=== PATIENT | female | born 1965 | race Caucasian/White ===

== ENCOUNTER 2023-04-12 15:39 | Emergency (ER) | payer MEDICAID ==
[~2023-04-12] VITALS: Wt 56.7 kg
[~2023-04-12 15:39] MED LIST: ACETA325 MG PO; AMOXICILLIN500 MG PO; BACTRIM DS 8001 TA1 PO; NKHM; SEPTRA DS 800 M1 TAB PO; VICODIN 500 MG-1 TAB PO; ZITHROMAX Z PA250 MG PO
[2023-04-12] MEDS ORDERED: PREDNISONE20 M1 PO (17:09)
[2023-04-12] MEDS ORDERED: TRIAMCINOLONE430 GM TD (17:09)
== END 2023-04-12 17:12 | disposition home or self-care (01) ==
LOC: ED 15:39
DX: L23.7 Allergic contact dermatitis due to plants, except food (principal); Z98.51 Tubal ligation status

== ENCOUNTER 2023-04-15 15:25 | Emergency (ER) | payer MEDICAID ==
[~2023-04-15] VITALS: Ht 162.5 cm; Wt 59.0 kg
[~2023-04-15 15:25] MED LIST changes: +PREDNISONE20 M1 PO; +TRIAMCINOLONE430 GM TD
[2023-04-15] MEDS ORDERED: MELOXICAM15 MG PO (17:49)
== END 2023-04-15 17:57 | disposition home or self-care (01) ==
LOC: ED 15:25
DX: S96.911A Strain of unspecified muscle and tendon at ankle and foot level, right foot, initial encounter (principal); Z98.51 Tubal ligation status; X58.XXXA Exposure to other specified factors, initial encounter; Y93.89 Activity, other specified; Y92.89 Other specified places as the place of occurrence of the external cause; Y99.8 Other external cause status